=== PATIENT | male | born 1935 | race Caucasian/White ===

== ENCOUNTER → 2022-04-20 | Outpatient (CLI) | payer MEDICARE, BC ==
[~2022-04-20] MED LIST: AMLO10TA80 MT; ASPI-1497 MT; ATEN-175 MT; EMPA10TA MT; LOSA100T32 MT; METF-416 MT; SIMV-43 MT; SUCCINYLCHOLINE CHLORIDE 200MG/10ML IV ONE
== END | disposition home or self-care (01) ==
LOC: LAB 10:40
PROVIDERS: ATTEND Specialist
DX: Z01.812 Encounter for preprocedural laboratory examination (principal); Z20.822 Contact with and (suspected) exposure to COVID-19
CPT/HCPCS: 87426; C9803

== ENCOUNTER 2022-04-21 10:20 | Inpatient (IN) | payer MEDICARE, BC ==
[~2022-04-21] VITALS: Ht 162.6 cm; Wt 66.7 kg
[2022-04-21] VITALS (13 sets, daily range): BP systolic 111–157; BP diastolic 54–76
[2022-04-21] MEDS ORDERED: SEVOFLURANE 250 ML LIQUID INH ONE (13:26)
[2022-04-21] MEDS ORDERED: PROPOFOL 200MG/20ML VIAL IV ONE ×2 (13:30→20:12)
[2022-04-21] MEDS ORDERED: MIDAZOLAM HCL 2 MG/2 ML VIAL ONE ×2 (13:31→20:12)
[2022-04-21] MEDS ORDERED: LIDOCAINE HCL/PF 1% 10 MG/ML 5ML VIAL ONE ×2 (13:33→13:46)
[2022-04-21] MEDS ORDERED: IODIXANOL 320MG/ML 100 ML BOTTLE IV ONE ×2 (13:34→14:00)
[2022-04-21] MEDS ORDERED: LIDOCAINE HCL 1% 10 MG/ML 10ML VIAL ONE ×2 (14:08→17:41)
[2022-04-21] MEDS ORDERED: FENTANYL CITRATE/PF 50MCG/ML 2ML VIAL ONE ×3 (14:08→20:17)
[2022-04-21] MEDS ORDERED: DEXAMETHASONE 4MG/ML 1ML VIAL ONE ×2 (14:08→20:40)
[2022-04-21] MEDS ORDERED: ONDANSETRON HCL 4MG/2ML INJ ONE ×2 (14:08→20:40)
[2022-04-21] MEDS ORDERED: CEFAZOLIN SODIUM 1000MG/VIAL ONE ×3 (14:08→20:39)
[2022-04-21] MEDS ORDERED: HEPARIN 1000 UNITS/ML 10ML ONE (14:16)
[2022-04-21] MEDS ORDERED: EPHEDRINE SULFATE 50MG/ML VIAL ONE (14:32)
[2022-04-21] MEDS ORDERED: PROTAMINE SULFATE 10MG/ML VIAL 5ML IV ONE (15:44)
[2022-04-21] MEDS ORDERED: ATROPINE SULFATE 1MG/10ML SYR IV PRN (17:00)
[2022-04-21] MEDS ORDERED: MORPHINE SULFATE 2 MG/ML CPJ (NOT FOR IM USE) IV PRN (17:00)
[2022-04-21] MEDS ORDERED: ACETAMINOPHEN 325MG TABLET PO PRN (17:00)
[2022-04-21] MEDS ORDERED: ONDANSETRON HCL 4MG/2ML INJ IV PRN (17:00)
[2022-04-21] MEDS ORDERED: THROMBIN (BOVINE) 5000 UNITS/VIAL TOP ONE (17:41)
[2022-04-21] MEDS ORDERED: BACITRACIN 15GM TUBE TOP ONE (17:41)
[2022-04-21] MEDS ORDERED: POLYMYXIN B SULFATE 500000 UNITS/VIAL ONE (17:41)
[2022-04-21] MEDS ORDERED: BUPIVACAINE HCL/PF 0.5% (5MG/ML) 10ML ONE (17:42)
[2022-04-21 19:39] LABS: CHLORIDE 107 mEq/L (98-107)
[2022-04-21] MEDS ORDERED: SIMV-43 MT (20:06)
[2022-04-21] MEDS ORDERED: METF-416 MT (20:06)
[2022-04-21] MEDS ORDERED: LOSA100T32 MT (20:06)
[2022-04-21] MEDS ORDERED: ASPI-1497 MT (20:06)
[2022-04-21] MEDS ORDERED: AMLO10TA80 MT (20:06)
[2022-04-21] MEDS ORDERED: ATEN-175 MT (20:06)
[2022-04-21] MEDS ORDERED: EMPA10TA MT (20:06)
[2022-04-21 20:38] LABS: HEMATOCRIT. 41.8 % (42.0-52.0); MEAN CORPUSCULAR HEMOGLOBIN 28.4 pg (28.0-32.0); MEAN CORPUSCULAR VOLUME 84.5 fL (80.0-94.0); MEAN PLATELET VOLUME 8.2 fl (7.4-10.4); PLATELET 164 x1000/uL (130-400); RED BLOOD CELL COUNT 4.95 mill/uL (4.7-6.1); RED CELL DISTRIBUTION WIDTH 14.8 % (11.6-14.6)
[2022-04-21] MEDS ORDERED: LIDOCAINE HCL 2% JELLY 5ML ONE (20:40)
[2022-04-21] MEDS ORDERED: ENOXAPARIN 40MG/0.4ML SYR SUBCUT SCH (21:00)
[2022-04-21 22:52] LABS: PLATELET ESTIMATE NORMAL
[2022-04-21] MEDS: SODIUM CHLORIDE 0.45% 1,000 ML IV SCH (23:02)
[2022-04-22] VITALS (27 sets, daily range): BP systolic 97–146; BP diastolic 48–77
[2022-04-22 05:47] LABS: HEMATOCRIT. 39.2 % (42.0-52.0); HEMOGLOBIN. 13.1 g/dL (14.0-18.0); MEAN CORPUSCULAR HEMOGLOBIN 28.2 pg (28.0-32.0); MEAN CORPUSCULAR VOLUME 84.1 fL (80.0-94.0); MEAN PLATELET VOLUME 8.4 fl (7.4-10.4); PLATELET 187 x1000/uL (130-400); RED BLOOD CELL COUNT 4.66 mill/uL (4.7-6.1); RED CELL DISTRIBUTION WIDTH 14.7 % (11.6-14.6)
[2022-04-22 06:27] LABS: CHLORIDE 106 mEq/L (98-107)
[2022-04-22] MEDS ORDERED: ASPIRIN 325MG TABLET PO SCH (09:00)
[2022-04-22] MEDS ORDERED: ATENOLOL 25MG TABLET PO NR (09:15)
[2022-04-22] MEDS: SODIUM CHLORIDE 0.45% 1,000 ML IV SCH ×2 (09:18→15:46)
[2022-04-22] MEDS ORDERED: ASPIRIN 81MG EC TABLET PO SCH (09:30)
[2022-04-22] MEDS ORDERED: ONDANSETRON HCL 4MG/2ML INJ IV PRN (12:45)
[2022-04-22 12:51] LABS: PLATELET ESTIMATE NORMAL
[2022-04-22] MEDS ORDERED: PANTOPRAZOLE SODIUM 40 MG/VIAL IV SCH (15:30)
[2022-04-22] MEDS ORDERED: ENOXAPARIN 60MG/0.6ML SYR SUBCUT SCH (17:00)
[2022-04-22] MEDS ORDERED: ATORVASTATIN CALCIUM 10MG TABLET PO SCH (21:00)
[2022-04-22 23:46] LABS: BASOPHILS % 0.1 % (0.0-2.0); HEMATOCRIT. 31.1 % (42.0-52.0); HEMOGLOBIN. 10.6 g/dL (14.0-18.0); LYMPHOCYTES % 11.5 % (20.0-50.0); MEAN CORPUSCULAR HEMOGLOBIN 28.6 pg (28.0-32.0); MEAN CORPUSCULAR VOLUME 83.7 fL (80.0-94.0); MEAN PLATELET VOLUME 7.9 fl (7.4-10.4); MONOCYTES % 9.7 % (2.0-8.0); NEUTROPHILS % 78.7 % (40.0-76.0); PLATELET 152 x1000/uL (130-400); RED BLOOD CELL COUNT 3.71 mill/uL (4.7-6.1)
[2022-04-23] VITALS (16 sets, daily range): BP systolic 98–152; BP diastolic 41–67
[2022-04-23] MEDS: SODIUM CHLORIDE 0.45% 1,000 ML IV SCH (05:00)
[2022-04-23 06:13] LABS: BASOPHILS % 0.2 % (0.0-2.0); HEMATOCRIT. 31.9 % (42.0-52.0); LYMPHOCYTES % 14.3 % (20.0-50.0); MEAN CORPUSCULAR HEMOGLOBIN 29.1 pg (28.0-32.0); MEAN CORPUSCULAR VOLUME 84.5 fL (80.0-94.0); MONOCYTES % 11.5 % (2.0-8.0); PLATELET 140 x1000/uL (130-400); RED BLOOD CELL COUNT 3.78 mill/uL (4.7-6.1); RED CELL DISTRIBUTION WIDTH 14.8 % (11.6-14.6)
[2022-04-23 06:18] LABS: CHLORIDE 106 mEq/L (98-107)
[2022-04-23 10:46] LABS: PROTHROMBIN TIME 10.9 sec (9.6-11.0)
[2022-04-23] MEDS ORDERED: PANTOPRAZOLE SODIUM 40 MG/VIAL IV SCH (11:30)
[2022-04-23 12:01] LABS: BASOPHILS % 0.2 % (0.0-2.0); HEMATOCRIT. 34.3 % (42.0-52.0); HEMOGLOBIN. 11.6 g/dL (14.0-18.0); LYMPHOCYTES % 10.8 % (20.0-50.0); MEAN CORPUSCULAR HEMOGLOBIN 28.4 pg (28.0-32.0); MEAN CORPUSCULAR VOLUME 84.1 fL (80.0-94.0); MEAN PLATELET VOLUME 7.7 fl (7.4-10.4); MONOCYTES % 10.4 % (2.0-8.0); NEUTROPHILS % 78.6 % (40.0-76.0); PLATELET 166 x1000/uL (130-400); RED BLOOD CELL COUNT 4.07 mill/uL (4.7-6.1); RED CELL DISTRIBUTION WIDTH 15.1 % (11.6-14.6)
[2022-04-23] MEDS ORDERED: PROPOFOL 200MG/20ML VIAL IV ONE (12:08)
[2022-04-23 12:47] LABS: CLARITY URINE CLOUDY (CLEAR); COLOR URINE RED (YELLOW); KETONES URINE NEGATIVE (NEGATIVE); LEUKOCYTE ESTERASE URINE 2+ (NEGATIVE); NITRITE URINE NEGATIVE (NEGATIVE); OCCULT BLOOD URINE 3+ (NEGATIVE); PH URINE 5.5 (4.5-8.0); PROTEIN URINE 3+ (NEGATIVE); SPECIFIC GRAVITY URINE 1.009 (1.005-1.030); UROBILINOGEN URINE 0.2 E.U./dL (0.2-1.0)
[2022-04-23] MEDS ORDERED: SUCRALFATE 1 G/10 ML UDC PO SCH (18:00)
== END 2022-04-23 15:55 | disposition home or self-care (01) | DRG 268 ==
LOC: CCL 10:20 → CVICU 17:19
PROVIDERS: ADMIT Specialist; ATTEND Specialist
PROC: 04V03DZ Restriction of Abdominal Aorta with Intraluminal Device, Percutaneous Approach (ICD-10-PCS; principal; 2022-04-21)
PROC: 04CK0ZZ Extirpation of Matter from Right Femoral Artery, Open Approach (ICD-10-PCS; 2022-04-21)
PROC: 04UK0KZ Supplement Right Femoral Artery with Nonautologous Tissue Substitute, Open Approach (ICD-10-PCS; 2022-04-21)
PROC: B410ZZZ Fluoroscopy of Abdominal Aorta (ICD-10-PCS; 2022-04-21)
PROC: 0DB68ZX Excision of Stomach, Via Natural or Artificial Opening Endoscopic, Diagnostic (ICD-10-PCS; 2022-04-23)
DX: I71.4 Abdominal aortic aneurysm, without rupture (principal); K22.6 Gastro-esophageal laceration-hemorrhage syndrome; I74.3 Embolism and thrombosis of arteries of the lower extremities; I72.3 Aneurysm of iliac artery; I44.0 Atrioventricular block, first degree; Z20.822 Contact with and (suspected) exposure to COVID-19; E11.9 Type 2 diabetes mellitus without complications; E78.5 Hyperlipidemia, unspecified; I10 Essential (primary) hypertension; J44.9 Chronic obstructive pulmonary disease, unspecified; K44.9 Diaphragmatic hernia without obstruction or gangrene; I25.10 Atherosclerotic heart disease of native coronary artery without angina pectoris; D64.9 Anemia, unspecified; K57.90 Diverticulosis of intestine, part unspecified, without perforation or abscess without bleeding; Z79.82 Long term (current) use of aspirin; Z79.84 Long term (current) use of oral hypoglycemic drugs; Z79.899 Other long term (current) drug therapy; Z95.5 Presence of coronary angioplasty implant and graft
CPT/HCPCS: 36415; 80048; 81003; 85025; 85044; 86850; 86900; 87426; 88304; 88305; 97116; 97162; C1884; C9113; J0690; J1100; J1644; J1650; J2250; J2405; J2704; J2720; J3010; J3490; J7030; Q9967; A4315